=== PATIENT | male | born 1970 | race Caucasian/White ===

== ENCOUNTER 2024-10-21 13:26 | Emergency (ER) | payer OTHER, SELFPAY ==
[2024-10-21 13:31] VITALS: BP 188/97; PULSE 65; TEMP 36.6; O2SAT 96; BMI 23.5
--- OUTSIDE RECORDS SUMMARY | 2024-10-21 13:39 | XMS_ITS | Encounter Summary ---
Author Organization [facility] Given Goodss tem Address [id number] [place] [address] Care Team Providers Care Amphibian Crewmember Name Role Phone Drew Velazquez MD Primary Care Provider + [phone] Reason for Referral * Cardiology (Routine) - Closed Specialty Diagnoses / Procedures Referred By Contonesimo t Referred To Contact Diagnoses Preop examination Procedures ECG 12 lead Hussein Galarza PA [address] [place] [id number] Phone: tel: fax: Referral ID Status Reason Start Date Expiration Date Visits Re quested Visits Authorized [id number] Closed 09/30/2022 09/30/2023 1 1 Encounter Details Date Type Department Care Team (Late st Contact Info) Description 09/30/2022 Orders Only [facility] - Pre Admit [address] [place] [address] Adelaida Machuca RN Preop examination (Primary Dx) Social History Tobacco Use Types Packs/Day Years Used Date Smoking Tobacco: Some Days Cigarettes Smokeless Tobacco: Never Childcare Answer Date Recorded Childcare Unknown 10/13/2018 Employment Answer Date Recorded Employment Unknown 10/13/2018 Purpose - Life Answer Date Recorded Purpose and direction in life Unknown Sex and Gender Information Value Date Recorded Sex Assigned at Not on file Legal Sex Male 11:47 AM EDT Gender Identity Not on file Sexual Orientation Not on file documented as of this encounter Plan of Treatment Not on file documented as of this encounter Results * ECG 12 lead (10/01/2022 10:03 AM EDT) 10/01/2022 10:0 3 AM EDT Narrative TRACEMASTERVUE - 10/01/2022 10:43 AM EDT us Hussein MILLER ECG ORDERABLES Final Result TRACEMASTERVUE documented in this encounter Visit Diagnoses Diagnosis Preop examination- Primary Unspecified pre-operative examination Preop examination Unspecified pre-operative examination documented in this encounter Additional Health Concerns Infection Onset Date Last Indicated Resolved Time COVID-19 Rule-Out 10/15/2022 10/15/2022 10/15/2022 2:26 PM EDT documented as of this encounter Care Teams Amphibian Crewmember Relationship Specialty Start Date End Date Drew Velazquez MD PCP - General Family Medicine 09/26/22 documented as of this encounter
--- OUTSIDE RECORDS SUMMARY | 2024-10-21 13:39 | XMS_ITS | Encounter Summary ---
Author Organization [facility] Address [address] [place] [address] Care Team Providers Care Owner/Photographer Name Role Phone Drew Velazuqez MD Primary Care Provider Encounter Details Date Type Department Care Team (Late st Contact Info) Description 09/25/2022 Orders Only [facility] [address] [place] [id number] Yuki Zavala MA Social History Tobacco Use Types Packs/Day Years Used Date Smoking Tobacco: Former Cigarettes 0.3 5.6 0 09/20/2016 - 05/05/2022 Smokeless Tobacco: Never Alcohol Use Standard Drinks/Week Comments Yes 6 (1 standard drink = 0.6 oz pur e alcohol) Humiliation, Afraid, Rape, and Kick questionnair e Answer Date Recorded Within the last year, have y ou been afraid of your partner or ex-partner? No 09/24/2022 Within the last year, have y ou been humiliated or emotionally abused in other ways by your partner or ex-partner? No Within the last year, have y ou been kicked, hit, slapped, or otherwise physically hurt by your partner or ex-partner? No 09/24/2022 Within the last year, have y ou been raped or forced to have any kind of sexual activity by your partner or ex-partner? No 09/24/2022 Social Connection and Isolation Panel [NHANES] A nswer Date Recorded In a typical week, how many times do you talk on the phone with family, friends, or neighbors? Once a week 05/24/20 23 How often do you get togethe r with friends or relatives? Once a week 09/24/2022 How often do you attend chur or confucianist services? Patient declined 09/24/2022 Do you belong to any clubs o r organizations such as restoration groups, unions, fraternal or athletic groups, or school groups? Yes 09/24/2022 How often do you attend meet ings of the clubs or organizations you belong to? 1 to 4 times per year 09/24/2022 Are you , , di vorced, , never , or living with a partner? 09/24/2022 AUDIT-C Answer Date Recorded Q1: How often do you have a drink containing alc ohol? 2-4 times a month 09/24/2022 Q2: How many drinks containi ng alcohol do you have on a typical day when you are drinking? 3 or 4 09/24/2022 Q3: How often do you have si x or more drinks on one occasion? Monthly 09/24/2022 Overall Financial Resource Strain (CARDIA) Answe r Date Recorded How hard is it for you to pa y for the very basics like food, housing, medical care, and heating? Not very hard 09/24/2022 [facility] - Occupational Stress Questionnaire Answer Date Recorded Do you feel stress - tense, restless, nervous, or anxious, or unable to sleep at night because your mind is troubled all the time - these days? Only a little 09/24/2022 Exercise Vital Sign Answer Date Recorde d On average, how many days pe r week do you engage in moderate to strenuous exercise (like a brisk walk)? 5 days 09/24/2022 On average, how many minutes do you engage in exercise at this level? 120 min 09/24/2022 Hunger Vital Sign Answer Date Recorded Within the past 12 months, y ou worried that your food would run out before you got the money to buy more. Never true 09/25/19 23 Within the past 12 months, t he food you bought just didn't last and you didn't have money to get more. Never true 09/24/2022 PRAPARE - Transportation Answer Date Re corded In the past 12 months, has l ack of transportation kept you from medical appointments or from getting medications? No 09/02 In the past 12 months, has l ack of transportation kept you from meetings, work, or from getting things needed for daily living? No 09/24/2022 Housing Stability Vital Sign Answer Jacobo e Recorded In the last 12 months, was t here a time when you were not able to pay the mortgage or rent on time? No 09/24/2022 In the last 12 months, how many places have you lived? 1 09/24/2022 In the last 12 months, was t here a time when you did not have a steady place to sleep or slept in a fdc (including now)? No 09/24/2022 Sex and Gender Information Value Date Recorded Sex Assigned at Male 09/15/2022 1:11 PM EDT Legal Sex Male 8:33 PM EDT Gender Identity Male 09/15/2022 1:11 PM EDT Sexual Orientation Not on file COVID-19 Exposure Response Date Recorded In the last 10 days, have yo u been in contact with someone who was confirmed or suspected to have Coronavirus/COVID-19? No / Unsure 09/24/2022 1:42 PM EDT documented as of this encounter Plan of Treatment Upcoming Encounters Date Type Department Care Team (Late st Contact Info) Description 10/25/2024 4:00 PM EDT Procedure Visit [facility] [address] [place] [address] Drew Velazquez MD [address] [place] [address] documented as of this encounter Visit Diagnoses Not on filedocumented in this encounter Care Teams Owner/Photographer Relationship Specialty Start Date End Date Drew Velazquez MD [address] [place] [address] PCP - General Family Medicine 09/09/22 documented as of this encounter
--- OUTSIDE RECORDS SUMMARY | 2024-10-21 13:39 | XMS_ITS | Encounter Summary ---
Author Organization [facility] Address [address] [place] [address] Care Team Providers Care Marketing Specialist Name Role Phone Drew Velazquez MD Primary Care Provider [phone] Encounter Details Date Type Department Care Team (Late st Contact Info) Description 01/28/2023 Abstract [facility] [address] [place] [address] Colin Alvarado, RETAIL MERCHANDISER [address] [place], [place] [id number] Social History Tobacco Use Types Packs/Day Years Used Date Smoking Tobacco: Some Days Cigarettes 0.3 5.6 Started: 09/20/2016; Last attempted to quit: 05/05/2022 Smokeless Tobacco: Never Alcohol Use Standard [...] family, friends, or neighbors? Once a week 09/25/19 How often do you get togethe r with friends or relatives? Once a week 09/24/2022 How often do you attend chur ch or zoroastrianism services? Patient declined 09/24/2022 Do you belong to any clubs o r organizations such as hinduism groups, unions, fraternal or athletic groups, or [...] containing alc ohol? 2-4 times a month 10/07/2022 Q2: How many drinks containi ng alcohol do you have on a typical day when you are drinking? 3 or 4 10/07/2022 Q3: How often do you have si x or more drinks on one occasion? Less than monthly 10/07/2022 Overall Financial Resource Strain (CARDIA) Answe r Date Recorded How hard is it for you to pa y for the very basics like food, housing, medical care, and heating? Not very hard 09/24/2022 PHQ-2 Answer Date Recorded Patient Health Questionnaire-2 Score 0 10/23/2022 [facility] - Occupational Stress Questionnaire Answer Date Recorded [...] place to sleep or slept in a alf (including now)? No 09/24/2022 Education Answer Date Recorded What is the highest level of school you have completed or the highest degree you have received? High school graduate 10/29/2022 Sex and Gender Information Value Date Recorded Sex Assigned at Male 09/15/2022 1:11 PM EDT Legal Sex Male 8:33 PM EDT Gender Identity Male 09/15/2022 1:11 PM EDT Sexual Orientation Not on file COVID-19 Exposure Response Date Recorded In the last 10 days, have yo u been in contact with someone who was confirmed or suspected to have Coronavirus/COVID-19? No / Unsure 01/27/2023 8:46 AM EDT documented as of this encounter Plan of Treatment Upcoming Encounters Date Type Department Care Team (Late st Contact Info) Description 10/25/2024 4:00 PM EDT Procedure Visit [facility] [address] [place] [address] Drew Velazquez MD [address] [facility] [address] [place] [address] (Fax) documented as of this encounter Visit Diagnoses Not on filedocumented in this encounter Care Teams Marketing Specialist Relationship Specialty Start Date End Date Drew Velazquez MD [address] [facility] 100 [place] [address] PCP - General Family Medicine 09/09/22 documented as of this encounter
--- OUTSIDE RECORDS SUMMARY | 2024-10-21 13:39 | XMS_ITS | Encounter Summary ---
Author Organization [facility] Address [address] [place] [address] Care Team Providers Care Mobile Patrol Officer Name Role Phone Drew Velazquez MD Primary Care Provider Reason for Visit * Reason Onset Date Comments Med Refill 10/15/2024 Encounter Details Date Type Department Care Team ([facility] st Contact Info) Description 10/15/2024 Refill [facility] [address] [place] [address] Drew Velazquez MD [address] [place] [address] Chronic postoperative pain; Reactive depression Social History Tobacco Use Types Packs/Day Years Used Date Smoking Tobacco: Former Cigarettes 0.3 5.6 0 09/20/2016 - 05/05/2022 Smokeless Tobacco: Never Alcohol Use Standard Drinks/Week Comments Yes 6 (1 standard drink = 0.6 oz pur e alcohol) B1300 Health Literacy Answer Date Recor ded How often do you need to hav e someone help you when you read instructions, pamphlets, or other written material from your doctor or pharmacy? Never 12/17/2023 Humiliation, Afraid, Rape, and Kick questionnair e [...] family, friends, or neighbors? Once a week 12/17/2023 How often do you get together with friends or re latives? Once a week 12/17/2023 How often do you attend gnosticist or hindu serv ices? Never 12/17/2023 Do you belong to any clubs o r organizations such as gnosticist groups, unions, fraternal or athletic groups, or school groups? No 12/17/2023 How often do you attend meet ings of the clubs or organizations you belong to? Never 12/17/2023 Are you , , di vorced, , never , or living with a partner? 12/17/2023 AUDIT-C Answer Date Recorded Q1: How often do you have a drink containing alc ohol? Patient declined 12/17/2023 Q2: How many drinks containi ng alcohol do you have on a typical day when you are drinking? Patient declined 12/17/2023 Q3: How often do you have si x or more drinks on one occasion? Patient declined 12/17/2023 Overall Financial Resource Strain (CARDIA) Answe r Date Recorded How hard is it for you to pa y for the very basics like food, housing, medical care, and heating? Not hard at all 12/17/2023 PHQ-2 Answer Date Recorded Patient Health Questionnaire-2 Score 4 12/21/2023 [facility] ional [facility] - Occupational Stress Questionnaire Answer Date Recorded Do you feel stress - tense, restless, nervous, or anxious, or unable to sleep at night because your mind is troubled all the time - these days? Very much 12/17/2023 Exercise Vital Sign Answer Date Recorde d On average, how many days pe r week do you engage in moderate to strenuous exercise (like a brisk walk)? 6 days 12/17/2023 On average, how many minutes do you engage in exercise at this level? 90 min 12/17/2023 Hunger Vital Sign Answer Date Recorded Within the past 12 months, y ou worried that your food would run out before you got the money to buy more. Never true 12/17/19 Within the past 12 months, t he food you bought just didn't last and you didn't have money to get more. Never true 12/17/2023 PRAPARE - Transportation Answer Date Re corded In the past 12 months, has l ack of transportation kept you from medical appointments or from getting medications? No 12/02 In the past 12 months, has l ack of transportation kept you from meetings, work, or from getting things needed for daily living? No 12/17/2023 Housing Stability Vital Sign Answer Jacobo e [...] place to sleep or slept in a chcf (including now)? No 09/24/2022 Housing Stability Vital Sign Answer Jacobo e Recorded In the last 12 months, was t here a time when you were not able to pay the mortgage or rent on time? No 12/17/2023 Number of Times Moved in the Last Year Not on fi le 12/17/2023 At any time in the past 12 m [facility], were you homeless or living in a chcf (including now)? No 12/17/2023 Education Answer Date Recorded What is the highest level of school you have completed or the highest degree you have received? High school graduate 10/29/2022 Sex and Gender Information Value Date Recorded Sex Assigned at Male 09/15/2022 1:11 PM EDT Legal Sex Male 8:33 PM EDT Gender Identity Male 09/15/2022 1:11 PM EDT Sexual Orientation Not on file documented as of this encounter Plan of Treatment Upcoming Encounters Date Type Department Care Team (Late st Contact Info) Description 10/25/2024 4:00 PM EDT Procedure Visit [facility] [address] [facility] 100 [place] [address] Drew Velazquez MD 112 [facility] 100 [place] [address] documented as of this encounter Visit Diagnoses Diagnosis Chronic postoperative pain Other chronic postoperative pain Reactive depression Other chronic pain Arthritis of knee, right documented in this encounter Additional Health Concerns Assessment Noted Time PHQ-9 Depression Total Score: 16 024 3:55 PM EDT documented as of this encounter Care Teams Mobile Patrol Officer Relationship Specialty Start Date End Date Drew Velazquez MD [address] [address] PCP - General Family Medicine 09/09/22 documented as of this encounter
--- OUTSIDE RECORDS SUMMARY | 2024-10-21 13:39 | XMS_ITS | Encounter Summary ---
Author Organization [facility] Address [address] [place] [address] Care Team Providers Care Matcher Offbearer Name Role Phone Drew Velazquez MD Primary Care Provider Encounter Details Date Type Department Care Team (Late st Contact Info) Description 10/01/2022 Orders Only [facility] [address] [facility] 150 [place] [address] Hussein Galarza PA [address] [facility] 150 [place] [address] Social History Tobacco Use Types Packs/Day Years [...] How often do you attend chur or mandaen services? Patient declined 09/24/2022 Do you belong to any clubs o r organizations such as restorationist groups, unions, fraternal or athletic groups, or [...] care, and heating? Not very hard 09/24/2022 [facility] [place] [facility] Occupat ional Health - Occupational Stress [...] place to sleep or slept in a long term (including now)? No 09/24/2022 Sex and Gender [...] FM [address] [place] [address] Drew Velazquez MD [address] [place] [address] documented as of this encounter Visit Diagnoses Not on filedocumented in this encounter Care Teams Matcher Offbearer Relationship Specialty Start Date End Date Drew Velazquez MD [address] [place] [address] PCP - General Family Medicine 09/09/22 documented as of this encounter
--- OUTSIDE RECORDS SUMMARY | 2024-10-21 13:39 | XMS_ITS | Encounter Summary ---
Author Organization [facility] Address [address] [place] [address] Care Team Providers Care Wiener Packer Name Role Phone Drew Velazquez MD Primary Care Provider Encounter Details Date Type Department Care Team (Late st Contact Info) Description 02/10/2023 Abstract [facility] [address] [facility] [place] [address] Jr. Maldonado Brown, DO 112 [facility] 150 [place] [address] Social History Tobacco Use Types Packs/Day Years [...] often do you attend chur ch or yarsani services? Patient declined 09/24/2022 Do you belong to any clubs o r organizations such as jainism groups, unions, fraternal or athletic groups, or [...] Recorded Patient Health Questionnaire-2 Score 0 10/23/2022 [facility] - Occupational Stress Questionnaire Answer [...] place to sleep or slept in a intermediate (including now)? No 09/24/2022 Education Answer Date [...] Visit [facility] [address] [facility] 100 [place] [address] Drew Velazquez MD [address] [address] (Fax) documented as of this encounter Visit Diagnoses Not on filedocumented in this encounter Care Teams Wiener Packer Relationship Specialty Start Date End Date Drew Velazquez MD [address] [address] PCP - General Family Medicine 09/09/22 documented as of this encounter
--- OUTSIDE RECORDS SUMMARY | 2024-10-21 13:39 | XMS_ITS | Encounter Summary ---
Author Organization [facility] Address [address] [place] [address] Care Team Providers Care Outreach Manager Name Role Phone Drew Velazquez MD Primary Care Provider Reason for Visit * Reason Comments Med Refill Encounter Details Date Type Department Care Team ([facility] st Contact Info) Description 01/08/2024 Refill [facility] [address] [place] [address] Drew Velazquez MD [address] [place] [address] (Fax) Chronic postoperative pain; Reactive depression Social History [...] week 12/17/2023 How often do you attend baptism or orthodoxy serv ices? Never 12/17/2023 Do you belong to any clubs o r organizations such as baptism groups, unions, fraternal or athletic groups, or [...] Recorded Patient Health Questionnaire-2 Score 4 12/21/2023 [facility] ional [facility] - Occupational Stress [...] in a intermediate (including now)? No 09/24/2022 Housing Stability Vital Sign Answer Jacobo e Recorded In the last 12 months, was t here a time when you were not able to pay the mortgage or rent on time? No 12/17/2023 Number of Times Moved in the Last Year Not on fi le 12/17/2023 At any time in the past 12 m [facility], were you homeless or living in a intermediate (including now)? No 12/17/2023 Education Answer Date [...] 10/25/2024 4:00 PM EDT Procedure Visit [facility] [address] [place] [address] Drew Velazquez MD [address] [address] documented as of this encounter Visit Diagnoses Diagnosis Chronic postoperative pain Other chronic postoperative pain Reactive depression Other chronic pain Arthritis of knee, right documented in this encounter Additional Health Concerns Assessment Noted Time PHQ-9 Depression Total Score: 16 024 3:55 PM EDT documented as of this encounter Care Teams Outreach Manager Relationship Specialty Start Date End Date Drew Velazquez MD [address] [address] PCP - General Family Medicine 09/09/22 documented as of this encounter
--- OUTSIDE RECORDS SUMMARY | 2024-10-21 13:39 | XMS_ITS | Clinical Summary ---
Author Organization [facility] Healthcare Address [address] [place] [address] Care Team Providers Care Horticultural Farm Manager Name Role Phone Drew Velazquez MD Primary Care Provider Allergies No known active allergies Medications cholecalciferol (Vitamin D-3) 125 MCG (5000 UT) capsule 1 (one) time each day at the same time. 0 Active Melatonin 10 MG capsule Take 20 mg by mouth at bedtime Active meloxicam (Mobic) 15 MG tabletIndications: Arthritis of right knee TAKE ONE TABLET BY MOUTH DAILY WITH FOOD 90 tablet 2 4 Active venlafaxine XR (Effexor XR) 150 MG 24 hr capsuleIndications :Chronic postoperative pain,Reactive depression Take 1 capsule (150 mg) by mouth Daily Do not crush or chew. 90 capsule 1 4 Active amoxicillin (Amoxil) 500 MG tabletIndications: History of left knee replacement 4 tabs PO once 30-60 mins before procedure with food 4 tablet 3 5 Active Active Problems Problem Noted Date Diagnosed Date Primary osteoarthritis of left knee 10/12/2022 History of total knee arthroplasty, left 023 Difficulty walking 10/12/2022 Arthritis of knee, right 09/04/2022 Chronic fatigue 09/04/2022 Current smoker on some days 09/04/2022 Episode of recurrent major depressive disorder 0 09/04/2022 Memory loss 09/04/2022 Other chronic pain 09/04/2022 Other rosacea 09/04/2022 Rotator cuff syndrome of right shoulder 09/05/19 23 Vitamin D deficiency 09/04/2022 Resolved Problems Problem Noted Date Diagnosed Date Resolved Date Acute pain of left knee 10/12/202204/03 Arthritis of left knee 09/04/202204/12 Encounters Date Type Department Care Team Description 10/15/2024 Refill [facility] [address] [place] [address] Drew Velazquez MD Chronic postoperative pain; Reactive depression 08/29/2024 Refill [facility] [address] [place] [address] Hussein Galarza PA History of left knee replacement from Last 3 Months Immunizations Immunization Administration Dates Next Due Pfizer Purple Cap SARS-CoV-2 Vaccination 021 Family History Medical History Relation Name Comments Diabetes Brother Arthritis Father Usama Holman Cancer Father Usama Holman Hyperlipidemia Father Usama Holman Liver cancer Father Usama Holman Lung cancer Father Usama Holman Thymic aplasia Father Usama Holman Alzheimer's disease Mother Arthritis Mother Dementia Mother Heart disease Mother Breast cancer Sister Osteoarthritis Sister Relation Name Status Comments Brother Daughter Alive Father Usama Holman Mother Sister Social History Tobacco Use Types Packs/Day Years Used Date Smoking Tobacco: Former Cigarettes 0.3 5.6 0 09/20/2016 - 05/05/2022 Smokeless Tobacco: Never Tobacco Cessation:Counseling Given: Yes Alcohol Use Standard Drinks/Week Comments Yes 6 [...] week 12/17/2023 How often do you attend nondenominational or confucianism serv ices? Never 12/17/2023 Do you belong to any clubs o r organizations such as nondenominational groups, unions, fraternal or athletic groups, or [...] Recorded Patient Health Questionnaire-2 Score 4 12/21/2023 [facility] - Occupational [...] the money to buy more. Never true 08/15/20 24 Within the past 12 months, t he [...] place to sleep or slept in a mcc (including now)? No 09/24/2022 Housing Stability Vital Sign Answer Jacobo e Recorded In the last 12 months, was t here a time when you were not able to pay the mortgage or rent on time? No 12/17/2023 Number of Times Moved in the Last Year Not on fi le 12/17/2023 At any time in the past 12 m [facility], were you homeless or living in a mcc (including now)? No 12/17/2023 Education Answer Date Recorded What is the highest level of school you have completed or the highest degree you have received? High school graduate 10/29/2022 Sex and Gender Information Value Date Recorded Sex Assigned at Male 09/15/2022 1:11 PM EDT Legal Sex Male 8:33 PM EDT Gender Identity Male 09/15/2022 1:11 PM EDT Sexual Orientation Not on file Last Filed Vital Signs Vital Sign Reading Time Taken Comments Blood Pressure 122/74 10/07/2022 2:50 PM EDT Pulse 72 10/20/2022 10:19 AM EDT Temperature - - Respiratory Rate - - Oxygen Saturation 97% 10/20/2022 10:19 AM EDT Inhaled Oxygen Concentration - - Weight 77.1 kg (170 lb) 04/04/2024 4:30 PM EST Height 185.4 cm (6' 1 ) 04/04/2024 4:30 PM EST Body Mass Index 22.43 04/04/2024 4:30 PM EST Plan of Treatment Upcoming Encounters Date Type Department Care Team ([facility] st Contact Info) Description 10/25/2024 4:00 PM EDT Procedure Visit [facility] [address] [place] [address] Drew Velazquez MD [address] [place] [address] Health Maintenance Due Date Last Done Comments CT Colonography 1969 FIT-DNA 1970 FIT 1970 FOBT 1970 Sigmoidoscopy 1970 Influenza Vaccine (Season Ended) 2025 Colonoscopy 06/27/2025 06/27/2015 Colorectal Cancer Screening 06/27/2025 Procedures Procedure Name Priority Date/Time Associated Diagnosis Comments COLONOSCOPY Routine 06/27/2015 12:00 PM EST from Last 3 Months or Most Recently Relevant to Health Maintenance Results * Colonoscopy (06/27/2015 12:00 PM EST) Anatomical Region Laterality Modality Endoscopy 06/27/2015 12:0 0 PM EST Narrative 06/27/2015 12:00 PM EST PERFORMED AT [facility] LOCATION:[id number] Procedure Note CONVERSION, GENERIC - 09/18/2022 PERFORMED AT [facility] LOCATION:[id number] Drew Velazquez MD ENDOSCOPY PROCEDURE ORDERABL ES Final Result from Last 3 Months or Most Recently Relevant to Health Maintenance Insurance [facility] Care Teams Horticultural Farm Manager Relationship Specialty Start Date End Date Drew Velazquez MD [address] [address] PCP - General Family Medicine 09/09/22
--- OUTSIDE RECORDS SUMMARY | 2024-10-21 13:39 | XMS_ITS | Clinical Summary ---
Author Organization [facility] Address [id number] [place] [address] Care Team Providers Care Forest Manager Name Role Phone Drew Velazquez MD Primary Care Provider [phone] Allergies No known active allergies Medications melatonin 1 mg tablet,chewable Chew 3 m and swallow. Active cholecalciferol , vitamin D3, 5,000 units tablet Take 2 tablets (10,000 Units total) by mouth in the morning. Active Active Problems Problem Noted Date Diagnosed Date Primary osteoarthritis of left knee 06/26/2022 Overview (06/26/2022): Added automatically from request for surgery [id number] Social History Tobacco Use Types Packs/Day Years Used Date Smoking Tobacco: Former Cigarettes 0.3 15 2 - 2020 Smokeless Tobacco: Former Chew Tobacco Cessation:Counseling Given: Not Answered Alcohol Use Standard Drinks/Week Comments Yes 0 (1 standard drink = 0.6 oz pur e alcohol) occasional Childcare Answer Date Recorded Childcare Unknown 10/13/2018 Employment Answer Date Recorded Employment Unknown 10/13/2018 Hunger Screening Answer Date Recorded Within the past 12 months we worried whether our food would run out before we got money to buy more. Never True 10/15/2022 Within the past 12 months th e food we bought just didn't last and we didn't have money to get more. Never True 10/15/2022 Purpose - Life Answer Date Recorded Purpose and direction in life Unknown Sex and Gender Information Value Date Recorded Sex Assigned at Not on file Legal Sex Male 11:47 AM EDT Gender Identity Not on file Sexual Orientation Not on file Last Filed Vital Signs Vital Sign Reading Time Taken Comments Blood Pressure 149/91 02/10/2023 9:57 AM EDT Pulse 58 02/10/2023 9:57 AM EDT Temperature 36.6 C (97.8 F) 02/10/2023 8:55 AM EDT Respiratory Rate 15 02/10/2023 9:57 AM EDT Oxygen Saturation 97% 02/10/2023 9:57 AM EDT Inhaled Oxygen Concentration - - Weight 81.2 kg (179 lb) 02/10/2023 6:35 AM EDT Height 185.4 cm (6' 1 ) 02/10/2023 6:35 AM EDT Body Mass Index 23.62 02/10/2023 6:35 AM EDT Plan of Treatment Health Maintenance Due Date Last Done Comments Depression Screening 1981 DTaP,Tdap and Td Vaccines (1 - Tdap) 1988 Zoster (Shingles) Vaccine (1 of 2) 08/31/2019 COVID-19 Vaccine (3 - season) 2024, 07/27/2020 Adult BMI Screening 02/11/2024 02/10/2023 Tobacco Screening 02/11/2024 02/10/2023 Influenza Vaccine 01/02/2025 Medical Devices Not on file Insurance Care Teams Forest Manager Relationship Specialty Start Date End Date Drew Velazquez MD PCP - General Family Medicine 09/26/22
--- OUTSIDE RECORDS SUMMARY | 2024-10-21 13:39 | XMS_ITS | Encounter Summary ---
Author Organization [facility] Address [address] [place] [address] Care Team Providers Care Distilling Department Supervisor Name Role Phone Drew Velazquez MD Primary Care Provider Reason for Visit * Reason Onset Date Comments Med Refill 01/11/2024 Encounter Details Date Type Department Care Team (Late st Contact Info) Description 01/11/2024 Refill [facility] [address] [place] [address] Drew Velazquez MD [address] [place] [address] Chronic postoperative pain; Reactive depression Social History [...] week 12/17/2023 How often do you attend scientology or hoahaoism serv ices? Never 12/17/2023 Do you belong to any clubs o r organizations such as scientology groups, unions, fraternal or athletic groups, or [...] Recorded Patient Health Questionnaire-2 Score 4 12/21/2023 [facility] - Occupational Stress [...] place to sleep or slept in a halfway (including now)? No 09/24/2022 Housing Stability Vital Sign Answer Jacobo e Recorded In the last 12 months, was t here a time when you were not able to pay the mortgage or rent on time? No 12/17/2023 Number of Times Moved in the Last Year Not on fi le 12/17/2023 At any time in the past 12 m [facility], were you homeless or living in a halfway (including now)? No 12/17/2023 Education Answer Date [...] 10/25/2024 4:00 PM EDT Procedure Visit [facility] [address] [facility] [address] [place] [address] Drew Velazquez MD 112 [facility] [address] [place] [address] documented as of this encounter Visit Diagnoses Diagnosis Chronic postoperative pain Other chronic postoperative pain Reactive depression Other chronic pain Arthritis of knee, right documented in this encounter Additional Health Concerns Assessment Noted Time PHQ-9 Depression Total Score: 16 024 3:55 PM EDT documented as of this encounter Care Teams Distilling Department Supervisor Relationship Specialty Start Date End Date Drew Velazquez MD [address] [address] PCP - General Family Medicine 09/09/22 documented as of this encounter
--- NOTE | 2024-10-21 13:51 | PC.NURSE ---
pt reports dizziness and lightheadedness has resolved
--- NOTE | 2024-10-21 14:13 | CT_ITS ---
The [address] [address] Patient Name: ALICE VERDE MRN: [id number] date: 1970 Sex: M Assigned Patient Location: ER Current Patient Location: ER Accession/Order Number: [id number] Exam Date: 10/21/2024 14:48 Report Date: 10/21/2024 14:57 At the request of: LALO BUSTOS MD Procedure: CT abdomen pelvis wo con CT ABDOMEN AND PELVIS WITHOUT INTRAVENOUS CONTRAST: CLINICAL HISTORY: Right-sided abdominal pain starting this morning. COMPARISON: None TECHNIQUE: Spiral images were obtained through the abdomen and pelvis without intravenous contrast. This CT exam was performed using one or more following dose reduction techniques: Automated exposure control, adjustment of the mA and/or kV according to patient size, or use of iterative reconstruction technique. FINDINGS: Lung Bases: [No acute findings.] Organs:Suboptimal evaluation due to lack of IV contrast. Cholelithiasis.[Liver spleen pancreas and adrenal glands all appear unremarkable. Kidneys demonstrate no stone or hydronephrosis. Aorta appears normal in caliber. GI: Stomach is grossly unremarkable. Small bowel appears nondilated. Appendix is normal. No acute colonic abnormality.[ Pelvis:[Urinary bladder and prostate gland appear unremarkable. Left-sided fat filled inguinal hernia.] Peritoneum/Retroperitoneum:No free air or free fluid or lymphadenopathy.[ Abd wall/Bones:Abdominal wall demonstrate no acute process. Osseous structures demonstrate degenerative change.[ CT/CT abdomen pelvis wo con IMPRESSION: No acute process. Cholelithiasis. Impression dictated by: Gerald Rosales Jr. DYamilOYamil 10/21/2024 2:57 PM Dictation Location: [place] [address] Electronically authenticated by: [id number] Y Date: 10/21/2024 14:57
--- NOTE | 2024-10-21 14:13 | ECG_ITS ---
The [facility] Test Date: 2024-10-21 Pat Name: ALICE VERDE Department: Room: - Gender: Male Rental Agent: : 1970 Requested By: [id number] Order Number: [id number] Reading MD: KENNETH BRANHAM M.D. Measurements Intervals [place] Rate: 66 P: 63 MA: 162 QRS: 61 QRSD: 88 T: 80 QT: 374 QTc: 388 Interpretive Statements 1100 Sinus rhythm 9110 normal ECG No previous ECG available for comparison Electronically Signed On 10-21-2024 19:35:38 EDT by KENNETH BRANHAM M.D.
[2024-10-21 14:20] LABS: Basophils Percent Auto 0.6 % (0.2-2.0); Hematocrit 39.5 % (42.0-54.0); Hemoglobin 13.7 g/dL (14.0-18.0); Immature Granulocytes Abs Auto 0.03 10^3/uL (0.00-0.03); Immature Granulocytes Pct Auto 0.4 % (0.0-0.5); Lymphocytes Absolute Auto 0.9 10^3/uL (1.2-3.8); Lymphocytes Percent Auto 13.4 % (20.5-60.0); Mean Corpuscular HGB Conc 34.7 g/dL (29.9-35.2); Mean Corpuscular Hemoglobin 29.7 pg (25.9-34.0); Mean Corpuscular Volume 85.5 fL (80.0-94.0); Mean Platelet Volume 9.4 fL (9.5-13.5); Monocytes Absolute Auto 0.8 10^3/uL (0.3-0.8); Monocytes Percent Auto 10.9 % (1.7-12.0); Neutrophils Absolute Auto 5.1 10^3/uL (1.4-6.5); Neutrophils Percent Auto 74.7 % (43.0-75.0); Platelet Count 263 10^3/uL (150-450); Red Blood Count 4.62 10^6/uL (4.70-6.10); Red Cell Distribution Width 13.4 % (11.0-15.0); White Blood Count 6.9 10^3/uL (4.0-11.0)
[2024-10-21 14:34] LABS: Alanine Aminotransferase 40 U/L (16-63); Albumin Globulin Ratio 1.1; Albumin Level 3.8 g/dL (3.4-5.0); Alkaline Phosphatase 71 U/L (46-116); Anion Gap 11.6; Aspartate Amino Transferase 20 U/L (15-37); BUN Creatinine Ratio 32.1; Bilirubin Total 0.4 mg/dL (0.2-1.0); Calcium 9.5 mg/dL (8.5-10.1); Carbon Dioxide 29.7 mmol/L (21.0-32.0); Chloride 102 mmol/L (98-107); Estimated GFR (African America >60 (>=60 mL/min/1.73m^2); Estimated GFR (Non-African Ame >60 (>=60 mL/min/1.73m^2); Globulin 3.6 g/dL; Glucose 114 mg/dL (74-106); Potassium 4.3 mmol/L (3.5-5.1); Sodium 139 mmol/L (136-145); Total Protein 7.4 g/dL (6.4-8.2); Troponin I High Sensitivity <4.0 pg/mL (4.0-76.1)
--- NOTE | 2024-10-21 14:34 | US_ITS ---
The [place] [id number] Patient Name: ALICE VERDE MRN: [id number] date: 1970 Sex: M Assigned Patient Location: ER Current Patient Location: ER Accession/Order Number: [id number] Exam Date: 10/21/2024 15:42 Report Date: 10/21/2024 15:46 At the request of: LALO BUSTOS MD Procedure: US right upper quadrant Right upper quadrant ultrasound HISTORY: Right upper quadrant pain after eating. Liver normal in size and echogenicity. Portal vein patent. Adequate blood flow. No gallstones. Negative ultrasound Wilson's sign. 11.5 mm gallbladder wall thickening with edematous changes. Common bile duct measures 1.7 mm. Normal pancreas. Normal right kidney. US/US right upper quadrant IMPRESSION: 11.5 mm edematous gallbladder wall thickening. May represent secondary findings of inflammatory changes such as hepatitis. Correlate with liver enzymes. No visible gallstone. Unremarkable liver Impression dictated by: Rei Motta M.D. 10/21/2024 3:46 PM Dictation Location: [place] [address] Electronically authenticated by: [id number] Y Date: 10/21/2024 15:46
--- NOTE | 2024-10-21 14:34 | ED.ABDPAIN1 ---
HPI - Abdominal Pain General Chief Complaint: Abdominal Pain Stated Complaint: ABDOMINAL/FLANK PAIN Time Seen by Provider: 10/21/24 14:12 Source: patient Mode of arrival: walk-in History of Present Illness HPI narrative: The patient is a 54-year-old male that comes to the ER with a right upper quadrant pain that started few hours ago after eating, the patient mentioned that the pain associate with nausea and vomiting and he had 10 out of 10 pain There was no difficulty breathing no sweating and no chest pain at any time The patient mentioned that he does not have any change in bowel movement without diarrhea or constipation he had a normal bowel movement The pain was not radiating and he had no previous surgeries in his abdomen The patient mentioned that the pain get better whenever he lays on the right side on his abdomen Related Data Previous Rx's ?Medication ?Instructions ?Recorded dicyclomine 20 mg tablet 20 mg PO QID PRN abdominal pain 10/21/24 #10 tabs famotidine 20 mg tablet (Pepcid) 20 mg PO BID #14 tabs 10/21/24 Allergies Allergy/AdvReac Type Severity Reaction Status Date / Time No Known Drug Allergies Allergy Verified 10/21/24 13:37 Review of Systems ROS Status of ROS 10 or more systems reviewed and unremarkable except as noted in history and below PFSH PFSH Social History Little interest or pleasure in doing things: not at all Feeling down, depressed, or hopeless: not at all Exam Narrative Exam Narrative: Nurses notes and vital signs reviewed and patient is not hypoxic. General: Well-appearing and in no apparent distress. Skin: Warm, dry, no pallor noted. No rash. Head: Normocephalic, atraumatic. Neck: Supple, non-tender. Eye: Pupils are equal, round and EOMI. No scleral icterus. Cardiovascular: Regular Rate and Rhythm without murmur, gallop or rub. Respiratory: No accessory muscle use or respiratory distress. Lungs are clear to auscultation, no wheezing, rales or rhonchi Chest Wall: no tenderness Back: No midline thoracic or lumbar vertebral tenderness. No CVA tenderness Musculoskeletal: normal ROM, no calf or popliteal tenderness, no lower extremity edema/swelling GI: Abdomen is soft, there is a right upper quadrant tenderness on superficial palpation there is no rash and no ecchymosis and the patient have a negative Wilson Neurological: A&O x4. No cranial nerve dysfunction observed. No truncal ataxia. Constitutional Vital Signs, click to edit/add: Last Vital Signs Temp 97.9 F 10/21/24 13:31 Pulse 68 10/21/24 17:29 Resp 18 10/21/24 17:29 BP 165/86 H 10/21/24 17:29 Pulse Ox 97 10/21/24 17:29 O2 Del Method Room Air 10/21/24 17:29 Course Vital Signs Vital signs: Vital Signs Temperature 97.9 F 10/21/24 13:31 Pulse Rate 65 10/21/24 13:31 Respiratory Rate 18 10/21/24 13:31 Blood Pressure 188/97 H 10/21/24 13:31 Pulse Oximetry 96 10/21/24 13:31 Oxygen Delivery Method Room Air 10/21/24 13:31 Temperature 97.9 F 10/21/24 13:31 Pulse Rate 68 10/21/24 17:29 Respiratory Rate 18 10/21/24 17:29 Blood Pressure 165/86 H 10/21/24 17:29 Pulse Oximetry 97 10/21/24 17:29 Oxygen Delivery Method Room Air 10/21/24 17:29 MDM - Abdominal Pain MDM Narrative Medical decision making narrative: Sinus rhythm with a heart rate of [address] elevation or depression The patient CBC and chemistry showed no acute pathology lipase was negative CAT scan of the abdomen showed no acute pathology as well as except for the cholelithiasis The patient had ultrasound of the right upper quadrant that shows edema of the gallbladder wall that is 11 mm but there was no dilation of the common biliary duct The patient had no elevated liver enzymes his LFTs were normal's and his pain was better after Toradol I discussed the case with general surgery from [facility] and he agrees that the patient presentation is not correlating with possible acute cholecystitis, the management plan was to treat the patient supportively and in case of worsening symptoms the patient to come back to the ER Show started on liquid diet as well as avoiding any fatty diet for the next few days in addition to Bentyl for pain and then Pepcid with strict instruction to come back to the ER in case of any worsening of symptoms in the next 24 hours The patient is to follow up with primary care physician in next 2-3 days or to return to the emergency department should any of the signs or symptoms worsen or new symptoms develop. The patient agrees with the following Diagnosis and Treatment plan and the patient will be discharged home. Lab Data Labs: Lab Results 10/21/24 10/21/24 10/21/24 Range/Units 13:45 14:13 14:46 WBC 6.9 (4.0-11.0) 10^3/uL RBC 4.62 L (4.70-6.10) 10^6/uL Hgb 13.7 L (14.0-18.0) g/dL Hct 39.5 L (42.0-54.0) % MCV 85.5 (80.0-94.0) fL MCH 29.7 (25.9-34.0) pg MCHC 34.7 (29.9-35.2) g/dL RDW 13.4 (11.0-15.0) % Plt Count 263 (150-450) 10^3/uL MPV 9.4 L (9.5-13.5) fL Neut % (Auto) 74.7 (43.0-75.0) % Lymph % (Auto) 13.4 L (20.5-60.0) % [place] % (Auto) 10.9 (1.7-12.0) % Eos % (Auto) 0.0 L (0.9-7.0) % Baso % (Auto) 0.6 (0.2-2.0) % Neut # (Auto) 5.1 (1.4-6.5) 10^3/uL Lymph # (Auto) 0.9 L (1.2-3.8) 10^3/uL [place] # (Auto) 0.8 (0.3-0.8) 10^3/uL Eos # (Auto) 0.0 (0.0-0.7) 10^3/uL Baso # (Auto) 0.0 (0.0-0.1) 10^3/uL Abs Immat Gran (auto) 0.03 (0.00-0.03) 10^3/uL Imm/Tot Granulo (auto) 0.4 (0.0-0.5) % Sodium 139 (136-145) mmol/L Potassium 4.3 (3.5-5.1) mmol/L Chloride 102 (98-107) mmol/L Carbon Dioxide 29.7 (21.0-32.0) mmol/L Anion Gap 11.6 BUN 25.0 H (7.0-18.0) mg/dL Creatinine 0.78 (0.70-1.30) mg/dL Est GFR ( Amer) >60 (>=60 mL/min/1.73m^2) Est GFR (Non-Af Amer) >60 (>=60 mL/min/1.73m^2) BUN/Creatinine Ratio 32.1 Glucose 114 H (74-106) mg/dL Calcium 9.5 (8.5-10.1) mg/dL Total Bilirubin 0.4 (0.2-1.0) mg/dL AST 20 (15-37) U/L ALT 40 (16-63) U/L Alkaline Phosphatase 71 (46-116) U/L Troponin I High Sens <4.0 L (4.0-76.1) pg/mL Total Protein 7.4 (6.4-8.2) g/dL Albumin 3.8 (3.4-5.0) g/dL Globulin 3.6 g/dL Albumin/Globulin Ratio 1.1 Lipase 61.0 (16.0-77.0) U/L Urine Color Lt. yellow (YELLOW) Urine Clarity Clear (CLEAR) Urine pH 6.5 (5.0-9.0) Ur Specific [place] 1.015 (1.005-1.025) Urine Protein Negative (NEG/TRACE) mg/dL Urine Glucose (UA) Negative (NEGATIVE) mg/dL Urine Ketones Negative (NEGATIVE) mg/dL Urine Occult Blood Negative (NEGATIVE) Urine Nitrite Negative (NEGATIVE) Urine Bilirubin Negative (NEGATIVE) Urine Urobilinogen 0.2 (0.2-1.0) EU/dL Ur Leukocyte Esterase Negative (NEGATIVE) Discharge Plan Discharge Chief Complaint: Abdominal Pain Clinical Impression: Biliary colic, Bladder wall thickening Patient Disposition: Home, Self-Care Time of Disposition Decision: 17:28 Condition: Good Prescriptions / Home Meds: New dicyclomine 20 mg tablet 20 mg PO QID PRN (Reason: abdominal pain) Qty: 10 0RF famotidine [Pepcid] 20 mg tablet 20 mg PO BID Qty: 14 0RF Print Language: Ivorian Instructions: Biliary Colic (ED), Soft Diet (ED), GI (Gastrointestinal) Soft Diet (ED) Referrals: BRUCE ROWAN [Primary Care Provider, Family Practice] - 1 week Discharge Date/Time: 10/21/24 17:34
[2024-10-21] MEDS: ONDANSETRON PF 4 MG/2 ML VIAL IV (14:49)
[2024-10-21 14:50] LABS: Bilirubin Urine NEGATIVE (NEGATIVE); Blood Urine NEGATIVE (NEGATIVE); Clarity Urine CLEAR (CLEAR); Color Urine LT. YELLOW (YELLOW); Glucose Urine UA NEGATIVE (NEGATIVE); Ketones Urine NEGATIVE (NEGATIVE); Leukocyte Esterase Urine NEGATIVE (NEGATIVE); Nitrite Urine NEGATIVE (NEGATIVE); Protein Urine NEGATIVE (NEG/TRACE); Specific Gravity Urine 1.015 (1.005-1.025); Urobilinogen Urine 0.2 EU/dL (0.2-1.0); pH Urine 6.5 (5.0-9.0)
[2024-10-21] MEDS: KETOROLAC TROMETHAMINE 30 MG/ML VIAL 15 MG IVP (14:50)
[2024-10-21] MEDS: FAMOTIDINE/PF 20 MG/2 ML VIAL IV (14:50)
[2024-10-21 15:05] LABS: Urine Microscopic Indicated NO
[2024-10-21 17:29] VITALS: BP 165/86; PULSE 68; O2SAT 97
== END 2024-10-21 17:34 | disposition home or self-care (01) ==
PROVIDERS: Emergency Provider Emergency Medicine; Family Provider Family Medicine; PCP Family Medicine
DX: K80.50 Calculus of bile duct without cholangitis or cholecystitis without obstruction (principal); R10.11 Right upper quadrant pain; R11.2 Nausea with vomiting, unspecified
CPT/HCPCS: 36415; 74176; 76705; 80053; 81003; 83690; 84484; 85025; 93005; 96374; 96375; 99285; J1885; J2405; J3490